=== PATIENT | male | born 1945 | race Caucasian/White ===

== ENCOUNTER → 2024-03-13 | Outpatient (CLI) | payer MEDICARE ==
[~2024-03-13] MED LIST: ASPI325T OR; ASPI81TA83 OR; AVAPRO OR; COUM1TAB14 OR; LISI2.5T OR; SIMV40TA2 OR; SIMVPOW2 OR; [UNRECOGNIZED DRUG - OTHER]
== END ==
LOC: M RAD 10:57
DX: Z01.811 Encounter for preprocedural respiratory examination (principal)

== ENCOUNTER 2024-06-11 12:41 | Emergency (ER) | payer MEDICARE ==
[~2024-06-11] VITALS: Ht 185.4 cm; Wt 86.2 kg
[2024-06-11] MEDS ORDERED: ISOVUE-370 76% 100ML VIAL As Ordered ONE (12:57)
[2024-06-11 13:00] LABS: BASO % 0.2 % (0.0-1.0); EOS # 0.1 10^3/uL (0.0-0.5); EOS % 0.7 % (0.0-3.0); HEMOGLOBIN 15.8 g/dl (13.5-17.5); LYMPH # 0.9 10^3/uL (1.5-5.0); MEAN CORPUSCULAR HEMOGLOBIN 32.4 pg (27.0-33.0); MEAN CORPUSCULAR HGB CONC 34.3 g/dl (32.0-36.5); MEAN CORPUSCULAR VOLUME 94.5 fl (80.0-96.0); MONO # 0.7 10^3/uL (0.0-0.8); MONO % 5.1 % (2.0-8.0); NEUTROPHILS # 11.6 10^3/uL (1.5-8.5); NEUTROPHILS % 86.5 % (36.0-66.0); PLATELET COUNT, AUTOMATED 210 10^3/uL (150-450); RED BLOOD COUNT 4.87 10^6/uL (4.30-6.10); WHITE BLOOD COUNT 13.5 10^3/uL (4.0-10.0)
[2024-06-11 13:12] LABS: INR 1.07; PARTIAL THROMBOPLASTIN TIME 27.4 SECONDS (24.8-34.2); PROTHROMBIN TIME 14.2 SECONDS (12.5-14.5)
[2024-06-11 14:11] VITALS: BP 159/71; TEMP 97.4; O2SAT 96
== END 2024-06-11 14:12 | disposition short-term general hospital (02) ==
LOC: M ED 12:41 → EDBD 12:41 → M ED 14:12
DX: I63.9 Cerebral infarction, unspecified (principal); I48.91 Unspecified atrial fibrillation; I10 Essential (primary) hypertension; Z86.73 Personal history of transient ischemic attack (TIA), and cerebral infarction without residual deficits; Z85.46 Personal history of malignant neoplasm of prostate; Z79.82 Long term (current) use of aspirin; Z79.01 Long term (current) use of anticoagulants; Z79.899 Other long term (current) drug therapy
CPT/HCPCS: 70450; 70496; 70498; 71045; 80047; 85025; 85610; 85730; 93005; 93041; 94760; 99285; Q9967

== ENCOUNTER 2024-07-10 11:04 | Outpatient (RCR) | payer MEDICARE | END 2024-07-12 | LOC: M ST 11:04 | PROVIDERS: ATTEND Nurse Practitioner Family | DX: I69.328 Other speech and language deficits following cerebral infarction (principal) ==

== ENCOUNTER → 2024-10-12 | Outpatient (RCR) | payer MEDICARE | LOC: M ST 09-20 11:07 | PROVIDERS: ATTEND Nurse Practitioner Family | DX: R47.01 Aphasia (principal) ==

== ENCOUNTER 2024-11-08 11:13 | Outpatient (RCR) | payer MEDICARE | END 2024-11-12 | LOC: M ST 11:13 | PROVIDERS: ATTEND Nurse Practitioner Family | DX: I69.320 Aphasia following cerebral infarction (principal) ==

== ENCOUNTER → 2024-12-12 | Outpatient (RCR) | payer MEDICARE | LOC: M ST 11-28 09:15 | PROVIDERS: ATTEND Nurse Practitioner Family | DX: I69.328 Other speech and language deficits following cerebral infarction (principal) ==